=== PATIENT | male | born 1945 | race Caucasian/White ===

== ENCOUNTER 2024-02-25 08:49 | Emergency (ER) | payer MEDICARE, BC, SELFPAY ==
[2024-02-25 08:56] VITALS: BP 131/56; PULSE 74; RESP 16; TEMP 36.9; O2SAT 96
--- NOTE | 2024-02-25 09:00 | DI.RAD_ITS ---
Exam(s) XR ABD FLAT UPRIGHT PA CHEST EXAM: XR ABD FLAT UPRIGHT PA CHEST CLINICAL HISTORY: Constipation. TECHNIQUE: 2D digital imaging was performed. COMPARISON: No exams were available for comparison FINDINGS: 3 views Chest x-ray: Heart size normal. Mediastinum not widened. No infiltrates nor pleural effusions. No pulmonary edema. No free air under the hemidiaphragms. Abdomen-two views supine and upright: There is no free intraperitoneal air. There are some air-filled but nondilated small bowel loops. Air is seen in the colon. Favor ileus over obstruction. No obvious masses nor bowel displacement. No calcifications seen over the kidneys in course of the ureters. Phlebolith is noted in the right-s aminah of the pelvis. IMPRESSION: Ileus pattern in the abdomen. No obvious bowel obstruction. No free air. Lungs are clear. DATA REPOSITORY: RADIATION DOSE DELIVERED:
--- NOTE | 2024-02-25 09:14 | ED.GENADUL_ITS ---
Discharge Plan Disposition Patient Disposition: Home Condition: Stable Discharge Details Clinical Impression: Constipation, Abdominal pain Primary Care Provider: Unknown,Unknown ED Provider: Rita Ortiz Home Meds and New Rx's Prescriptions: Continued amlodipine 2.5 mg tablet 2.5 mg PO DAILY Patient Comments: stopped taking a few days ago r/t constipation simvastatin 5 mg tablet 5 mg PO DAILY Discharge Instructions Instructions: Abdominal Pain, Adult ED, Constipation, Adult ED Additional Instructions: Use the glycerin suppositories once daily as needed. You may drink half of the magnesium citrate when you get home if no bowel produced please take the rest of it by mouth in approximately 45 minutes. Please take a stool softener daily such as Colace or docusate sodium. If diarrhea occurs please stop taking a stool softener. Please return to the ER be seen sooner for any worsening abdominal pain, fever, nausea vomiting, no bowel movement produced in the next 1 to 2 days, problems urinating or any further concerns. Follow up with primary care provider in 5-7 days, please follow-up with your surgeon as scheduled. Return to ED sooner if any worsening or concerns. Please take Tylenol with food every 4-6 hours as needed for pain and swelling. Referrals: Primary Care Provider [Outside] - 1 week (Sooner if worse) Discharge Data Discharge Date/Time-TO BE ENTERED AT DEPARTURE: 02/25/24 10:23 HPI General Mode of arrival: ambulatory . Date/Time Provider Initiated Documentation: 02/25/24 08:53 . Limitations to Documentation: no limitations . Information obtained by: patient, family, RN notes reviewed and old records reviewed . HPI Narrative: 79-year-old male with a past medical history of hypertension and inguinal hernia, high cholesterol presents to the ER with chief complaint of constipation, hard small bowel movements the last couple weeks associated with 2 days of generalized abdominal pain and increased right groin pain with walking. He denies any nausea vomiting diarrhea denies any fever or chills. Denies any problems urinating or burning with urination. He did take 2 Tylenol prior to arrival. And has been taking psyllium husk powder and prunes at home. In town for a music festival. They are from out of town and currently residing in [place] and is scheduled for inguinal hernia repair surgery on March 14. He is ambulatory upon arrival, alert and oriented x 3, is at bedside. Denies any other associated symptoms or concerns. Related Data Home Medications ?Medication ?Instructions ?Recorded ?Confirmed amlodipine 2.5 mg tablet 2.5 mg PO DAILY 02/25/24 02/25/24 simvastatin 5 mg tablet 5 mg PO DAILY 02/25/24 02/25/24 Allergies Allergy/AdvReac Type Severity Reaction Status Date / Time No Known Allergies Allergy Unverified 02/25/24 08:55 General Stated Complaint: Abd Prob HILARIO: 3 Review of Systems All systems reviewed & are unremarkable except as noted in HPI and below Cardiovascular Cardiovascular: Denies chest pain and Denies dyspnea Respiratory Respiratory: Denies dyspnea Gastrointestinal Gastrointestinal: Reports abdominal pain, Denies belching, Denies melena, Reports bloating, Denies hematochezia, Reports change in stool character, Reports constipation, Denies excessive flatus, Denies heartburn, Denies diarrhea, Denies loose stools, Denies nausea and Denies vomiting Genitourinary Genitourinary: Denies hematuria and Denies dysuria Exam Narrative Exam Narrative: Constitutional: Alert and oriented x3. Appears stated age. Normal body habitus. Head: Normocephalic, no trauma. Eyes: Pupils PERRL, Red reflex noted, EOM's intact. Eyelids symmetrical without lesions, discharge, or swelling. Chest: RRR, Normal S1, S2, distal pulses intact. Resp: Lungs clear to auscultation bilaterally, no wheezes, rales, or rhonchi. Abdomen: Soft, non-distended, hypo-active bowel sounds all 4 quads. Generalized tenderness with palpation, no masses or guarding noted, there is a inguinal hernia palpated in the right groin, it is soft and small no discoloration noted. Musculoskeletal: Normal gait, Moves all 4 extremities without difficulty. Skin: No suspicious rashes or lesions. Capillary refill less than 2 sec. Neurologic: Cranial nerves II-XII intact. Alert and oriented x 3. Motor: No deficits noted. Sensory: Intact bilaterally all 4 extremities. Hematologic/Lymphatic: No ecchymosis, no lymphadenopathy. Course Vital Signs Vital signs: Vital Signs Temperature 36.9 C 02/25/24 08:56 Pulse 74 02/25/24 08:56 Respiratory Rate 16 02/25/24 08:56 Blood Pressure 131/56 L 02/25/24 08:56 Pulse Oximetry 96 02/25/24 08:56 Temperature 36.9 C 02/25/24 08:56 Temperature Source Temporal Artery Scan 02/25/24 08:56 Pulse 74 02/25/24 08:56 Respiratory Rate 16 02/25/24 08:56 Respiratory Effort Normal, Non-Labored 02/25/24 08:59 Blood Pressure 131/56 L 02/25/24 08:56 Blood Pressure Position Sitting 02/25/24 08:56 Pulse Oximetry 96 02/25/24 08:56 Oxygen Delivery Method Room Air 02/25/24 08:56 Oxygen Flow Rate 0 02/25/24 08:56 Pain Level 8 02/25/24 08:56 Comment 2 tylenol at 0800 02/25/24 08:56 Medical Decision Making 79-year-old male with a past medical history of hypertension and inguinal hernia, high cholesterol presents to the ER with chief complaint of constipation, hard small bowel movements the last couple weeks associated with 2 days of generalized abdominal pain and increased right groin pain with walking. He denies any nausea vomiting diarrhea denies any fever or chills. Denies any problems urinating or burning with urination. He did take 2 Tylenol prior to arrival. And has been taking psyllium husk powder and prunes at home. In town for a music festival. They are from out of town and currently residing in [place] and is scheduled for inguinal hernia repair surgery on March 14. He is ambulatory upon arrival, alert and oriented x 3, is at bedside. Denies any other associated symptoms or concerns. Three-way abdomen x-ray ordered, discussed Colace and diet with patient and family. Will consider glycerin suppositories or MiraLAX upon discharge. At this time labs and CT imaging deferred due to vital signs stable, no complaints or symptoms of nausea vomiting fever chills. Differential diagnosis includes but not limited to gastroenteritis, constipation, incarcerated hernia however there is no signs or symptoms and clinical presentation does not suggest this. X-ray shows ileus pattern in the abdomen no obvious bowel obstruction no free air. Moderate amount of stool noted, will give glycerin suppositories to use at home, mag citrate half here and half at home. Will instruct on Colace and increasing oral fluids and to return if no bowel movement in the next couple of days or if any worsening abdominal pain. This text was generated using [employer] dictation system, please disregard any oddities of phrase or misspellings. Imaging Data Radiologic Study: Imaging: X-Ray Radiologist's impression: FINDINGS: 3 views Chest x-ray: Heart size normal. Mediastinum not widened. No infiltrates nor pleural effusions. No pulmonary edema. No free air under the hemidiaphragms. Abdomen-two views supine and upright: There is no free intraperitoneal air. There are some air-filled but nondilated small bowel loops. Air is seen in the colon. Favor ileus over obstruction. No obvious masses nor bowel displacement. No calcifications seen over the kidneys in course of the ureters. Phlebolith is noted in the right-side of the pelvis. IMPRESSION: Ileus pattern in the abdomen. No obvious bowel obstruction. No free air. Lungs are clear. Quality:SDOH Health Related Social Needs: No Data to Display PFSH All Active Problems (Updated 02/25/24 @ 10:08 by Rita Ortiz NP) Abdominal pain (Acute) Constipation (Acute) Social History Smoking/Tobacco Use Status: Never Smoking risk assessment performed?: Yes Alcohol Intake: current Alcohol Intake frequency: holidays/special occasions only Drug use: Never Substance use type: does not use Housing: house Do you feel safe at home: Yes Do you feel safe in your relationship?: Yes Additional Social history: at side
[2024-02-25 10:17] VITALS: PULSE 64; RESP 15; TEMP 36.4; O2SAT 96
[2024-02-25] MEDS: Magnesium Citrate 300 ML BTL PO (10:24)
== END 2024-02-25 10:23 | disposition home or self-care (01) ==
LOC: ER 10:53
PROVIDERS: Emergency Provider Registered Nurse Emergency
DX: R10.33 Periumbilical pain (principal); K59.00 Constipation, unspecified; I10 Essential (primary) hypertension; E78.00 Pure hypercholesterolemia, unspecified
CPT/HCPCS: 99283; 74022